=== PATIENT | female | born 1980 | race Asian ===

== ENCOUNTER 2016-04-05 19:25 | Emergency (ER) | payer OTHER ==
[~2016-04-05] VITALS: Ht 157.5 cm; Wt 61.4 kg
[2016-04-05 19:28] VITALS: BP 107/77; PULSE 83; RESP 18; O2SAT 98
[2016-04-05 20:51] LABS: APPEARANCE,URINE CLOUDY (CLEAR,HAZY); COLOR,URINE YELLOW (YELLOW); OCCULT BLOOD,URINE LARGE (NEGATIVE); PH,URINE 8.5 (5.0-8.0); UROBILINOGEN,URINE NORMAL (NORMAL)
--- NOTE | 2016-04-05 20:59 | ED.REPORT ---
HPI- Female Date of Service Apr 05, 2016 ED Provider: MD Sim This is a 35 year old female presenting to the ED complaining of dysuria that began 16 hours ago. Associated symptoms include urinary frequency and urgency. Denies back pain, hematuria, fever, chills, abdominal pain, nausea, or vomiting. Pt is visiting from [place]. Nursing Notes Stated Complaint: URINARY PAIN Chief Complaint: Female Abdominal Pain Nursing Notes Reviewed: Yes Allergies: Coded Allergies: iodine (Verified Allergy, Unknown, 04/05/16) Scheduled Nitrofurantoin Monohyd/M-Cryst (MacroBid) 100 Mg Capsule 100 MG PO BID General Time Seen by MD: 20:58 Chief Complaint Dysuria Hx Obtained From: Patient Arrived By: Walk-in Sudden in Onset?: Yes Symptom Duration: Since onset Severity: Current: Mild Pertinent Negative: Pt denies other symptoms Recent Healthcare: No recent doctor visit, No recent hospitalization Similar Sx Previous: No Past Medical History Past Medical History Denies Past Surgical History Denies Ambulatory Status Independent Review of Systems Constitutional: Denies: Chills, Fever Female: Reports: Dysuria, Urinary frequency, Urinary urgency, Denies: Flank pain, Hematuria Musculoskeletal: Denies: Back pain Complete sys rev & neg: except as marked. Physical Exam Initial Vital Signs Vital Signs (First) Date Time Temp Pulse Resp B/P Pulse Ox O2 Delivery O2 Flow Rate FiO2 04/05/16 19:28 36.7 83 18 107/77 98 Room Air Initial VS: Reviewed General/Constitutional: Well-developed, Well-nourished Head / Eyes: Atraumatic, Normocephalic, PERRL ENT: Mucous membranes moist, Conjunctiva normal, No scleral icterus Neck: Supple, Non-tender, Full range of motion Respiratory: Breath sounds normal, Clear to auscultation, No respiratory distress Cardiovascular: Regular rate & rhythm, Heart sounds normal, Intact distal pulses Abdomen / GI: Soft, Non-tender, No guarding, No rebound, No distention Extremities: Vascular intact, Neuro intact, No swelling, No tenderness Skin: Warm, Dry, No cyanosis Neurologic: Alert, Oriented, Nonfocal Psychiatric: Mood/affect normal, Behavior normal, Normal thought content Female Genitourinary: Exam deferred Back: Inspection NL, Full range of motion, Painless range of motion, No CVA tenderness Interpretation & Diagnostics Lab Results Interpretation Test 04/05/16 20:35 Urine Color Yellow (YELLOW) Urine Appearance Cloudy (CLEAR,HAZY) Urine pH 8.5 (5.0-8.0) Urine Specific [place] 1.015 (1.003-1.035) Urine Protein 30mg/dL (NEG,TRACE) Urine Glucose (UA) Negativemg/dL (NEGATIVE) Urine Ketones Negativemg/dL (NEGATIVE) Urine Occult Blood Large (NEGATIVE) Urine Nitrite Negative (NEGATIVE) Urine Bilirubin Negative (NEGATIVE) Urine Urobilinogen Normalmg/dL (NORMAL) Urine Leukocyte Esterase Moderate (NEGATIVE) Urine RBC 11-50/hpf (0-2) Urine WBC 11-50/hpf (0-5) Urine Epithelial Cells 0/hpf (NONE-MOD) Urine Crystals None seen (NONE SEEN) Urine Bacteria Few/hpf (NONE-FEW) Urine Hyaline Casts None/lpf (NONE) Urine Granular Casts None seen (NONE SEEN) Urine Waxy Casts None seen (NONE SEEN) Urine Red Blood Cell Casts None seen (NONE SEEN) Urine White Blood Cell Casts None seen (NONE SEEN) Urine Mucus None seen (None Seen) Urine Trichomonas None seen (NONE SEEN) Urine Yeast None (NONE SEEN) Urinalysis Comment Amorphous sediment Urine Culture Reflexed Indicated Re-Eval/Medical Decision Med Decision/Clinical Course 35-year-old female with no past medical history here with dysuria, frequency and urgency. Differential diagnosis includes but is not limited to urinary tract infection versus pyelonephritis versus urethritis versus interstitial cystitis. Patient has no CVA tenderness, and no systemic symptoms. She does have evidence of urinary tract infection. At this time, I feel she has UTI but not pyelonephritis. She has been given a prescription for Macrobid and will follow up with her primary care physician. Re-Evaluation/Progress : Time of Eval: 21:25 Re-Evaluation/Progress Note: Discussed plan for d/c, all questions addressed. Counseled Regarding: Diagnosis, Need for follow-up, When/why to return to ED Discharge & Departure Impression: Primary Impression: UTI (urinary tract infection) Urinary tract infection type: acute cystitis Hematuria presence: without hematuria Qualified Code: N30.00 - Acute cystitis without hematuria Disposition: Home Discharge Condition All VS Reviewed: Yes Condition: Stable Patient Instructions: Urinary Tract Infection in Women (DC) Additional Instructions: Take antibiotics as prescribed. Follow-up with your primary care provider. Return to the emergency department for any new or worsening symptoms Referrals: NOPCP (PCP) Scribe Attestation Portions of this note were transcribed by Cary Rivera. I, Dr. Montemayor personally performed the history, physical exam and medical decision-making; I reviewed and confirmed the accuracy of the information in the transcribed note. Signed by: andriy Meadows. 04/05/2016, 22:00. Bettye Montemayor MD Apr 05, 2016 20:59 CARY RIVERA Apr 05, 2016 21:05
[2016-04-05] MEDS ORDERED: NITR100 PO (21:50)
[2016-04-06] MEDS ORDERED: _Nitrofurantoin Macrocrystal 100 mg Capsule PO SCH (08:30)
== END 2016-04-05 21:57 | disposition home or self-care (01) ==
LOC: SED 19:25
DX: N30.00 Acute cystitis without hematuria (principal); B96.20 Unspecified Escherichia coli [E. coli] as the cause of diseases classified elsewhere; Z88.8 Allergy status to other drugs, medicaments and biological substances